=== PATIENT | female | born 1985 | race Asian ===

== ENCOUNTER 2019-10-03 07:51 | Day surgery (SDC) | payer OTHER ==
[2019-10-03 08:51] LABS: PLATELET COUNT 299 K/uL (152-353)
[2019-10-03 08:59] LABS: POTASSIUM 3.5 mmol/L (3.6-5.2)
== END 2019-10-03 12:49 | disposition home or self-care (01) ==
LOC: OR 07:51
PROVIDERS: Student in an Organized Health Care Education/Training Program
PROC: 0FT44ZZ Resection of Gallbladder, Percutaneous Endoscopic Approach (ICD-10-PCS; principal; 2019-10-03)
DX: K80.20 Calculus of gallbladder without cholecystitis without obstruction (principal)
CPT/HCPCS: 80053; 81025; 85027; J0132; J0330; J0690; J1100; J1170; J1885; J2001; J2250; J2405; J2704; J2710; J2765; J3010; J3490